=== PATIENT | female | born 1960 | race Caucasian/White ===

== ENCOUNTER 2024-01-21 21:44 | Inpatient (IN) | payer OTHER ==
[2024-01-21] MEDS: SODIUM CHLORIDE 0.9% 1,000 ML IV ONE (21:58)
[2024-01-21] MEDS: SODIUM CHLORIDE 0.9% 1,000 ML IV STA (21:59)
[2024-01-21] MEDS: LORazepam 2 MG/ML INJ IV STA (22:01)
[2024-01-21] MEDS: ADENOSINE 3 MG/ML 2 ML VIAL IVP STA ×2 (22:04→22:11)
[2024-01-21 22:10] LABS: Basophils % (A) 0 %; Eosinophils # (A) 0.1 k/uL (0-0.7); Eosinophils % (A) 1 %; HCT 38.3 % (34.0-46.0); HGB 12.8 gm/dL (11.4-16.0); Lymphocytes # (A) 2.2 k/uL (1.0-4.8); Lymphocytes % (A) 24 %; MCH 30.2 pg (25.0-35.0); MCHC 33.5 g/dL (31.0-37.0); MCV 90.2 fL (80.0-100.0); Mean Platelet Volume 7.2; Monocytes # (A) 0.3 k/uL (0-1.0); Monocytes % (A) 3 %; Neutrophils # (A) 6.6 k/uL (1.3-7.7); Neutrophils % (A) 71 %; Platelet Count 272 k/uL (150-450); RBC 4.25 m/uL (3.80-5.40); RDW 12.2 % (11.5-15.5); WBC 9.4 k/uL (3.8-10.6)
[2024-01-21 22:18] LABS: Partial Thromboplastin Time 22.9 sec (22.0-30.0); Prothrombin Time 10.6 sec (10.0-12.5)
[2024-01-21] MEDS: PROPOFOL 10 MG/ML 20 ML VIAL IV ONE (22:20)
[2024-01-21 22:26] LABS: ALT 16 U/L (4-34); African American GFR (CKD) 71 (>60 ml/min/1.73 sqM); Albumin 3.9 g/dL (3.5-5.0); Anion Gap 7 mmol/L; Blood Urea Nitrogen 16 mg/dL (7-17); Calcium 8.6 mg/dL (8.4-10.2); Carbon Dioxide 22 mmol/L (22-30); Chloride 109 mmol/L (98-107); Glucose 134 mg/dL (74-99); Non-African American GFR(CKD) 61 (>60 ml/min/1.73 sqM); Sodium 138 mmol/L (137-145); Total Bilirubin 0.7 mg/dL (0.2-1.3); Total Protein 6.6 g/dL (6.3-8.2)
[2024-01-21 22:29] LABS: AST 30 U/L (14-36); Alkaline Phosphatase 48 U/L (38-126); Magnesium 1.8 mg/dL (1.6-2.3)
[2024-01-21 22:35] LABS: NT-Pro-B-Type Natriuretic Pept 204 pg/mL
--- NOTE | 2024-01-21 23:09 | ED ---
Chest Pain HPI - General Chief Complaint: Chest Pain Stated Complaint: HIGH HEART RATE Time Seen by Provider: 01/21/24 21:46 Source: EMS Mode of arrival: EMS Limitations: no limitations - History of Present Illness Initial Comments: Patient is a 63-year-old woman who presents to have evaluation because she is not feeling well. Patient states that she had been using a push mower to mow her lawn. After that she states she just was not feeling well. She was a little short of breath, she was a little weak. She states she may have been a little sweaty. She denied chest pain. She called family members who prompted her to go to the hospital. MD Complaint: other Onset/Timin -: hour(s) Onset: other Pain Radiation: none Severity scale (1-10): 0 Consistency: constant Improves With: nothing Worsens With: nothing Anginal Symptoms: nausea Treatments Prior to Arrival: none - Related Data Home Medications Medication Instructions Recorded Confirmed Multivitamin/Iron/Folic Acid 1 tab PO DAILY 01/22/24 01/22/24 [Centrum Women Tablet] [place]-3/Dha/Epa/Fish Oil [Fish Oil 1 cap PO DAILY 01/22/24 01/22/24 1,000 mg Softgel] Vitamin B Complex 1 cap PO DAILY 01/22/24 01/22/24 Previous Rx's Medication Instructions Recorded Metoprolol Succinate (ER) [Toprol 25 mg PO DAILY #30 tab 01/22/24 Xl] Allergies Allergy/AdvReac Type Severity Reaction Status Date / Time No Known Allergies Allergy Verified 01/22/24 11:34 Review of Systems ROS Statement: Those systems with pertinent positive or pertinent negative responses have been documented in the HPI. ROS Other: All systems not noted in ROS Statement are negative. Constitutional: Reports: weakness. Denies: fever, chills Eyes: Denies: vision change Respiratory: Reports: dyspnea. Denies: cough, wheezes, stridor Cardiovascular: Reports: palpitations. Denies: chest pain, orthopnea, edema, syncope Gastrointestinal: Reports: nausea. Denies: abdominal pain, vomiting, diarrhea Genitourinary: Denies: dysuria, hematuria Musculoskeletal: Denies: back pain Skin: Denies: rash Neurological: Denies: headache, weakness, numbness EKG Findings - EKG Results: EKG: interpreted by ERMD, normal axis EKG shows: tachycardia (There is a wide-complex tachycardia in the 170s that appears to be SVT with bundle branch conduction. Possibility of ventricular tachycardia is considered) - Blocks, [place], Hypertrophy, ST Abn: AV and intraventricular conduction: left bundle branch block (fixed/intermittent, complete/incomplete) Repolarization changes or abnormalities: ST suggestive of injury General Exam General appearance: alert, in no apparent distress Head exam: Present: atraumatic, normocephalic Eye exam: Present: normal appearance. Absent: scleral icterus, conjunctival injection ENT exam: Present: mucous membranes dry Neck exam: Present: normal inspection Respiratory exam: Present: normal lung sounds bilaterally. Absent: respiratory distress, wheezes, rales, rhonchi, stridor, accessory muscle use Cardiovascular Exam: Present: regular rate, normal rhythm, normal heart sounds. Absent: systolic murmur, diastolic murmur, rubs, gallop GI/Abdominal exam: Present: soft. Absent: distended, tenderness, guarding, rebound, rigid, mass Extremities exam: Present: normal inspection Back exam: Present: normal inspection. Absent: CVA tenderness (R), CVA tenderness (L) Neurological exam: Present: alert Skin exam: Present: warm, dry, intact, mottled. Absent: rash Course Vital Signs 01/21/24 01/21/24 01/21/24 21:46 21:55 21:56 Temperature 98.2 F Pulse Rate 179 H 181 H Pulse Rate [ 181 H Right Supine Radial] Respiratory 18 18 Rate Blood Pressure 106/78 99/74 O2 Sat by Pulse 100 100 Oximetry 01/22/24 01/22/24 00:01 01:31 Temperature Pulse Rate 56 L 57 L Pulse Rate [ Right Supine Radial] Respiratory 16 18 Rate Blood Pressure 102/65 98/63 O2 Sat by Pulse 100 97 Oximetry Procedures - Procedural Sedation *Risks,benefits, and alternative therapies discussed?: Yes *Patient indicates understanding of risk/benefit discussion?: Yes *Indications: other (Wide-complex tachycardia with hypotension) *Previous Adverse Reaction to Anesthesia/Sedation?: No * Testing Complete?: No Reason Test Not Complete:: Emergent Situation *ASA Class: I *Mallampati Airway Score: 1 Complications: none Patient Tolerated Procedure: well, no complications Chest [facility] Patient is a 63-year-old woman presenting with complaint of not feeling well after mowing grass with a push mower. EMS did find wide-complex tachycardia that they suspected was SVT and they did give 2 doses of adenosine. They reported that after the 12 mg dose the patient did briefly go into sinus rhythm but reverted back to the tachycardia in the 170s. The patient had chest x-ray that I interpreted as negative for acute infiltrate, pneumothorax. There is pulmonary vascular congestion The patient was brought directly to the resuscitation room where she is seen and evaluated, had second IV started labs drawn, x-ray and EKG. Given that the patient did have response wants to adenosine and that she does have stable blood pressure adenosine was attempted twice without any result. Following this patient was pale and diaphoretic and blood pressure had decreased to the 70s over 40s. I did discuss synchronized cardioversion with the patient who did give verbal consent after risks, benefits, indications discussed. The patient was given propofol for sedation and then synchronized DC cardioversion was performed once with 100 J which resulted in patient converting to sinus rhythm. Was pt. sent in by a medical professional or institution (, PA, FORMING MACHINE OPERATOR, urgent care, hospital, or [facility]...) When possible be specific @ -[No] Did you speak to anyone other than the patient for history (EMS, parent, family, police, friend...)? What history was obtained from this source @ -[No] Did you review nursing and triage notes (agree or disagree)? Why? @ -[I reviewed and agree with nursing and triage notes] Were old charts reviewed (outside hosp., previous admission, EMS record, old EKG, old radiological studies, urgent care reports/EKG's, [facility] records)? Report findings @ -[No old charts were reviewed] Differential Diagnosis (chest pain, altered mental status, abdominal pain women, abdominal pain men, vaginal bleeding, weakness, fever, dyspnea, syncope, headache, dizziness, GI bleed, back pain, seizure, CVA, palpatations, mental health, musculoskeletal)? @ -Differential Palpitations Ventricular arrhythmias, atrial arrhythmias, myocardial infarction, anemia, thy rotoxicosis, electrolyte imbalance, hypokalemia, pulmonary embolism, pulmonary disease, drugs, alcohol, anxiety, stress.... This is not meant to be an all-inclusive list. EKG interpreted by me (3pts min.). @ -[I interpreted as above] X-rays interpreted by me (1pt min.). @ -[I interpreted as above CT interpreted by me (1pt min.). @ -[None done] U/S interpreted by me (1pt. min.). @ -[None done] What testing was considered but not performed or refused? (CT, X-rays, U/S, labs)? Why? @ -[None] What meds were considered but not given or refused? Why? @ -[None] Did you discuss the management of the patient with other professionals (professionals i.e. , PA, FORMING MACHINE OPERATOR, lab, RT, psych nurse, older adult social work specialist, principal technical architect, teacher, security officers and guards, case preparer and liner)? Give summary @ -Case discussed with the admitting physician and treatment recommendations incorporated Was smoking cessation discussed for >3mins.? @ -[No] Was critical care preformed (if so, how long)? @ -[Yes, 35 minutes Were there social determinants of health that impacted care today? How? (Homelessness, low income, unemployed, alcoholism, drug addiction, transportation, low edu. Level, literacy, decrease access to med. care, alf, rehab)? @ -[No] Was there de-escalation of care discussed even if they declined (Discuss DNR or withdrawal of care, Hospice)? DNR status @ -[No] What co-morbidities impacted this encounter? (DM, HTN, Smoking, COPD, CAD, Cancer, CVA, ARF, Chemo, Hep., AIDS, mental health diagnosis, sleep apnea, morbid obesity)? @ -[None] Was patient admitted / discharged? Hospital course, mention meds given and route, prescriptions, significant lab abnormalities, going to OR and other pertinent info. @ -[See the course above. Patient is admitted to have further evaluation as well as cardiology consultation and to continue cardiac monitoring. Undiagnosed new problem with uncertain prognosis? @ -[No] Drug Therapy requiring intensive monitoring for toxicity (Heparin, Nitro, Insulin, Cardizem)? @ -[No] Were any procedures done? @ -[Yes, synchronized cardioversion with procedural sedation Diagnosis/symptom? @ -[Acute heart arrhythmia Wide-complex tachycardia Hypotension Acute, or Chronic, or Acute on Chronic? @ -Acute Uncomplicated (without systemic symptoms) or Complicated (systemic symptoms)? @ -[Complicated by hypotension Side effects of treatment? @ -[No] Exacerbation, Progression, or Severe Exacerbation? @ -[No] Poses a threat to life or bodily function? How? (Chest pain, [place], [place], pneumonia, PE, COPD, DKA, ARF, appy, cholecystitis, CVA, Diverticulitis, Homicidal, Suicidal, threat to staff... and all critical care pts) @ -[Yes the patient had arrhythmia with hypotension and there is risk of associated Disposition Clinical Impression: Wide-complex tachycardia Disposition: ADMITTED IP TO THIS HOSP Condition: Stable Is patient prescribed a controlled substance at d/c from ED?: No
[2024-01-21] MEDS ORDERED: NITROGLYCERIN SL TABS 0.4 MG TAB SUBLINGUAL PRN (23:56)
--- NOTE | 2024-01-22 01:48 | XR ---
EXAM: XR Chest, 1 View CLINICAL HISTORY: ITS.REASON XR Reason: chest pain TECHNIQUE: Frontal view of the chest. COMPARISON: No relevant prior studies available. FINDINGS: Heart is top normal size. Mild pulmonary vascular congestion. No definite focal pneumonia. No pleural effusion or pneumothorax. Bones are unremarkable. IMPRESSION: Mild pulmonary vascular congestion.
[2024-01-22 03:25] VITALS: RESP 16
[2024-01-22] MEDS ORDERED: ONDANSETRON 4 MG/2 ML VIAL IVP PRN (08:26)
[2024-01-22] MEDS ORDERED: ACETAMINOPHEN TAB 325 MG TAB PO PRN (08:26)
[2024-01-22] MEDS: ASPIRIN 325 MG TAB PO SCH (08:27)
--- NOTE | 2024-01-22 11:42 | P.HPIM ---
History of Present Illness H&P Date: 01/22/24 This is a pleasant 63-year-old female with no significant medical history. Patient comes to the hospital with complaints of overall not feeling well with weakness and has been a little sweaty. Patient had been running around doing errands during the day, upon returning home symptoms started mostly described as feeling funny. Denied any shortness of breath. Did feel palpitations while laying down. No chest pain noted. No dizziness or light headedness. Decided to come to the ER for evaluation. Patient comes in with a heart rate of 180s to 200s appears to be a sustained V. tach. Patient was given to the scene and received sedation was cardioverted at 10:50 PM. Patient is now in normal sinus rhythm. Patient did have troponin elevation of 0.024, 0.447 and 0.692. Chest x-ray shows mild pulmonary vascular congestion however a proBNP is within normal limits for age in the 200s. Patient was admitted to the hospital with a cardiology consultation. Patient does port that a few weeks had similar symptoms of palpitations after working out which resolved spontaneously. Recently had a physical at her PCP office, 1 month ago and states her thyroid was check and was normal. REVIEW OF SYSTEMS: CONSTITUTIONAL: No fever, no malaise, no fatigue. HEENT: No recent visual problems or hearing problems. Denied any sore throat. CARDIOVASCULAR: No chest pain, orthopnea, PND, no palpitations, no syncope. PULMONARY: No shortness of breath, no cough, no hemoptysis. GASTROINTESTINAL: No diarrhea, no nausea, no vomiting, no abdominal pain. NEUROLOGICAL: No headaches, no weakness, no numbness. HEMATOLOGICAL: Denies any bleeding or petechiae. GENITOURINARY: Denies any burning micturition, frequency, or urgency. MUSCULOSKELETAL/RHEUMATOLOGICAL: Denies any joint pain, swelling, or any muscle pain. ENDOCRINE: Denies any polyuria or polydipsia. The rest of the 14-point review of systems is negative. PHYSICAL EXAMINATION: GENERAL: The patient is alert and oriented x3, not in any acute distress. Well developed, well nourished. HEENT: Pupils are round and equally reacting to light. EOMI. No scleral icterus. No conjunctival pallor. Normocephalic, atraumatic. No pharyngeal erythema. No thyromegaly. CARDIOVASCULAR: S1 and S2 present. No murmurs, rubs, or gallops. PULMONARY: Chest is clear to auscultation, no wheezing or crackles. ABDOMEN: Soft, nontender, nondistended, normoactive bowel sounds. No palpable organomegaly. MUSCULOSKELETAL: No joint swelling or deformity. EXTREMITIES: No cyanosis, clubbing, or pedal edema. NEUROLOGICAL: Gross neurological examination did not reveal any focal deficits. SKIN: No rashes. Assessment and plan Troponin elevation likely from the cardioversion Tachyarrhythmia/ SVT requiring adenosine and cardioversion now in normal sinus rhythm Palpitations requiring follow up with cardiology outpatient GI Prophylaxis DVT prophylaxis Patient can be discharged home will follow up with Dr Hair in the office. The impression and plan of care has been dictated by Jennifer Cordova Nurse Practitioner as directed. Dr. Fabian MD I have performed a history and physical examination and medical decision making of this patient, discussed the same with the dictator, and agree with the dictators assessment and plan as written, documented as a scribe. Based on total visit time, I have performed more than 50% of this visit. Past Medical History History of Any Multi-Drug Resistant Organisms: None Reported Smoking Status: Never smoker Past Drug Use History: None Reported Medications and Allergies Home Medications Medication Instructions Recorded Confirmed Type Multivitamin/Iron/Folic Acid 1 tab PO DAILY 01/22/24 01/22/24 History [Centrum Women Tablet] [place]-3/Dha/Epa/Fish Oil [Fish Oil 1 cap PO DAILY 01/22/24 01/22/24 History 1,000 mg Softgel] Vitamin B Complex 1 cap PO DAILY 01/22/24 01/22/24 History Allergies Allergy/AdvReac Type Severity Reaction Status Date / Time No Known Allergies Allergy Verified 01/22/24 11:34 Physical Exam Vitals: Vital Signs Temp Pulse Pulse Resp BP BP Pulse Ox 01/22/24 02:00 98.1 F 57 L 16 107/69 97 01/22/24 01:31 57 L 18 98/63 97 01/22/24 00:01 56 L 16 102/65 100 01/21/24 21:56 181 H 01/21/24 21:55 181 H 18 99/74 100 01/21/24 21:46 98.2 F 179 H 18 106/78 100 Intake and Output 01/21/24 01/22/24 01/22/24 22:59 06:59 14:59 Intake Total 540 Balance 540 Intake: Oral 540 Other: # Voids 1 Weight 69.4 kg 75 kg Results CBC & Chem 7: 01/21/24 21:55 01/21/24 21:55 Labs: Abnormal Lab Results - Last 24 Hours (Table) 01/21/24 01/22/24 01/22/24 Range/Units 21:55 01:32 04:50 Chloride 109 H (98-107) mmol/L Glucose 134 H (74-99) mg/dL Troponin I 0.447 H* 0.692 H* (0.000-0.034) ng/mL Assessment and Plan Time with Patient: Greater than 30
[2024-01-22 12:14] VITALS: BP 107/63; PULSE 70; TEMP 98.4
--- NOTE | 2024-01-22 12:37 | CA ---
Transthoracic Echo Report Name: Pratik Moon Age: 63 Gender: F : 1960 Exam Date: 01/22/2024 11:11 Exam Location: [place] [facility] Ht (in): 68 Wt (lb): 153 Ordering Physician: Freddy Adams MD Attending/Referring Phys: Pressed Or Blown Glass Worker Nirali Lua RDCS Procedure CPT: Indications: tachyarrhythmia Cardiac Hx: Technical Quality: Fair Contrast 1: Definity Total Dose (mL): 2 Contrast 2: Total Dose (mL): MEASUREMENTS (Male / Female) Normal Values 2D ECHO LV Diastolic Diameter PLAX 3.9 cm 4.2 - 5.9 / 3.9 - 5.3 cm LV Systolic Diameter PLAX 2.5 cm IVS Diastolic Thickness 1.4 cm 0.6 - 1.0 / 0.6 - 0.9 cm LVPW Diastolic Thickness 1.1 cm 0.6 - 1.0 / 0.6 - 0.9 cm LV Relative Wall Thickness 0.7 RV Internal Dim ED PLAX 3.6 cm LV Diastolic Volume MOD BP 90.3 cm??? 67 - 155 / 56 - 104 cm??? LV Systolic Volume MOD BP 25.3 cm??? 22 - 58 / 19 - 49 cm??? LV Ejection Fraction MOD BP 72.0 % >= 55 % LV Cardiac Index MOD BP 2632.7 cm???/min???m??? LV Diastolic Volume MOD 4C 71.4 cm??? LV Systolic Volume MOD 4C 18.4 cm??? LV Ejection Fraction MOD 4C 74.3 % LV Cardiac Index MOD 4C 2146.8 cm???/min???m??? LV Diastolic Length 4C 7.0 cm LV Systolic Length 4C 4.6 cm LV Diastolic Volume MOD 2C 110.1 cm??? LV Systolic Volume MOD 2C 28.2 cm??? LV Ejection Fraction MOD 2C 74.4 % LV Cardiac Index MOD 2C 3316.3 cm???/min???m??? LV Diastolic Length 2C 7.3 cm LV Systolic Length 2C 5.8 cm LA Volume 61.8 cm??? 18 - 58 / 22 - 52 cm??? LA Volume Index 33.8 cm???/m??? 16 - 28 cm???/m??? M-MODE Aortic Root Diameter MM 2.4 cm LA Systolic Diameter MM 3.4 cm LA Ao Ratio MM 1.4 AV Cusp Separation MM 1.3 cm DOPPLER AV Peak Velocity 132.3 cm/s AV Peak Gradient 7.0 mmHg AV Mean Velocity 95.1 cm/s AV Mean Gradient 3.9 mmHg AV Velocity Time Integral 30.8 cm LVOT Peak Velocity 124.5 cm/s LVOT Peak Gradient 6.2 mmHg LVOT Velocity Time Integral 28.5 cm MV Area PHT 2.9 cm??? Mitral E Point Velocity 95.6 cm/s Mitral A Point Velocity 51.2 cm/s Mitral E to A Ratio 1.9 MV Deceleration Time 265.7 ms MV E' Velocity 10.7 cm/s Mitral E to MV E' Ratio 8.9 TR Peak Velocity 268.7 cm/s TR Peak Gradient 28.9 mmHg Right Ventricular Systolic Press 33.2 mmHg FINDINGS Left Ventricle Moderately increased left ventricular wall thickness. Left ventricular cavity size normal. Normal left ventricular systolic function with no obvious regional wall motion abnormalities. Left ventricular ejection fraction is estimated at 55-60 %. Grade 1 diastolic dysfunction. Right Ventricle Mild right ventricular dilatation. Right ventricular systolic pressure within normal limits. Hypokinetic right ventricular free wall. Right Atrium Right atrial dilatation. Left Atrium Mildly increased left atrial volume. Mitral Valve Structurally normal mitral valve. Mitral valve thickened. Mild mitral annular calcification. Mild mitral regurgitation. Aortic Valve Trileaflet aortic valve. No aortic valve stenosis or regurgitation. Tricuspid Valve Structurally normal tricuspid valve. Mild tricuspid regurgitation. Pulmonic Valve Structurally normal pulmonic valve. Trace pulmonic regurgitation. Pericardium No pericardial effusion. Aorta Normal size aortic root and proximal ascending aorta. CONCLUSIONS Normal LV size and function RV at the appointment is abnormal with questionable mild hypokinesis of the RV free wall Previewed by: Dr. Chris Hair MD (Electronically Signed) Final Date: 22 January 2024 12:36
--- NOTE | 2024-01-22 12:47 | P.CRDCN ---
History of Present Illness Consult date: 01/22/24 Reason for Consult (text): arrhythmia History of present illness: the patient is a 63-year-old female with no past medical history who called EMS after experiencing a syncopal episode. The patient had been mowing her mother's lawn with a push mower and had been feeling well throughout the day. She then developed acute onset of dizziness and awoke lying on the ground. EMS was notified and she was found to be in a wide complex tachycardia. She had received 2 doses of adenosine via EMS, with additional doses given in the emergency room. She was ultimately converted via cardioversion.The patient states she had one similar episode earlier this month while showering with spontaneous resolution of symptoms. DIAGNOSTICS: EKG shows ventricular tachycardia with left bundle branch block pattern EKG post cardioversion shows sinus rhythm echocardiogram shows preserved LV function without structural abnormalities. lab data: WBC 9.4, hemoglobin 12.8, hematocrit 38.3, platelet 272, sodium 138, potassium 4.0, BUN 16, creatinine 1.0, AST 30, ALT 16, troponins 0.02, 0.6, BNP 204 REVIEW OF SYSTEMS: No fever or chills. No cough or expectoration. No diaphoresis. Patient denies headache, dizziness, blurred vision, double vision. Patient denies any stomach discomfort. No nausea, vomiting. No hematochezia. No hematemesis. Denies any black stools or blood in his stools. Denies dysuria or hematuria. No muscle weakness or numbness. no chest pain or chest pressure. No difficulty breathing. PHYSICAL EXAMINATION: This is a 63-year-old female in no apparent distress at the time of my examination. HEENT: Head is atraumatic, normocephalic. There is no jugular venous distention. No carotid bruit is heard. CHEST EXAMINATION: Lungs are clear to auscultation. No chest wall tenderness is noted on palpation or with deep breathing. HEART EXAMINATION: Heart regular rate and rhythm. S1, S2 heard. No murmurs, gallops or rub. ABDOMEN: Soft, nontender. Bowel sounds are heard. No organomegaly noted. EXTREMITIES: 2+ peripheral pulses with no evidence of peripheral edema and no calf tenderness noted. NEUROLOGIC EXAMINATION: Patient is awake, alert and oriented x3. FINAL ASSESSMENT AND PLAN: Idiopathic ventricular tachycardia, from RVOT Structurally normal heart PLAN: Start Toprol 25 mg daily check TSH patient may be discharged Outpatient follow-up with Dr. Hair to discuss ablation I am dictating on behalf of Dr Chris Hair's history/physical and assessment/plan. Past Medical History History of Any Multi-Drug Resistant Organisms: None Reported Smoking Status: Never smoker Past Drug Use History: None Reported Medications and Allergies Home Medications Medication Instructions Recorded Confirmed Type RX: Multivitamin/Iron/Folic Acid 1 tab PO DAILY 01/22/24 01/22/24 History [Centrum Women Tablet] RX: [place]-3/Dha/Epa/Fish Oil [Fish 1 cap PO DAILY 01/22/24 01/22/24 History Oil 1,000 mg Softgel] RX: Vitamin B Complex 1 cap PO DAILY 01/22/24 01/22/24 History Allergies Allergy/AdvReac Type Severity Reaction Status Date / Time No Known Allergies Allergy Verified 01/22/24 11:34 Physical Exam Vitals: Vital Signs Temp Pulse Pulse Pulse Resp BP BP 01/22/24 08:39 01/22/24 08:25 97.7 F 72 16 92/49 01/22/24 02:00 98.1 F 57 L 16 107/69 01/22/24 01:31 57 L 18 98/63 01/22/24 00:01 56 L 16 102/65 01/21/24 21:56 181 H 01/21/24 21:55 181 H 18 99/74 01/21/24 21:46 98.2 F 179 H 18 106/78 Pulse Ox 01/22/24 08:39 97 01/22/24 08:25 99 01/22/24 02:00 97 01/22/24 01:31 97 01/22/24 00:01 100 01/21/24 21:56 01/21/24 21:55 100 01/21/24 21:46 100 Intake and Output 01/21/24 01/22/24 01/22/24 22:59 06:59 14:59 Intake Total 540 358 Balance 540 358 Intake: Oral 540 358 Other: # Voids 1 Weight 69.4 kg 75 kg Results 01/21/24 21:55 01/21/24 21:55 Cardiac Enzymes 01/21/24 01/21/24 01/22/24 Range/Units 21:55 21:55 01:32 AST 30 (14-36) U/L Troponin I 0.024 0.447 H* (0.000-0.034) ng/mL 01/22/24 Range/Units 04:50 AST (14-36) U/L Troponin I 0.692 H* (0.000-0.034) ng/mL Coagulation 01/21/24 Range/Units 21:55 PT 10.6 (10.0-12.5) sec APTT 22.9 (22.0-30.0) sec CBC 01/21/24 Range/Units 21:55 WBC 9.4 (3.8-10.6) k/uL RBC 4.25 (3.80-5.40) m/uL Hgb 12.8 (11.4-16.0) gm/dL Hct 38.3 (34.0-46.0) % Plt Count 272 (150-450) k/uL Comprehensive Metabolic Panel 01/21/24 Range/Units 21:55 Sodium 138 (137-145) mmol/L Potassium 4.0 (3.5-5.1) mmol/L Chloride 109 H (98-107) mmol/L Carbon Dioxide 22 (22-30) mmol/L BUN 16 (7-17) mg/dL Creatinine 1.00 (0.52-1.04) mg/dL Glucose 134 H (74-99) mg/dL Calcium 8.6 (8.4-10.2) mg/dL AST 30 (14-36) U/L ALT 16 (4-34) U/L Alkaline Phosphatase 48 (38-126) U/L Total Protein 6.6 (6.3-8.2) g/dL Albumin 3.9 (3.5-5.0) g/dL Current Medications Generic Name Dose Route Start Last Admin Trade Name Freq PRN Reason Stop Dose Admin Acetaminophen 650 mg 01/22/24 08:26 Acetaminophen Tab 325 Mg Tab PO Q6HR PRN Fever and/ or Pain Aspirin 325 mg 01/22/24 09:00 01/22/24 08:27 Aspirin 325 Mg Tab PO 325 mg DAILY RAFY Administration Heparin Sodium (Porcine) 5,000 unit 01/22/24 08:30 Heparin Sodium,Porcine 5,000 Unit/Ml 1 Ml Vial SQ Q8HR RAFY Sodium Chloride 1,000 mls @ 75 mls/hr 01/21/24 21:54 01/21/24 21:59 Saline 0.9% IV 01/22/24 11:13 75 mls/hr .[id number] STA Administration Nitroglycerin 0.4 mg 01/21/24 23:56 Nitroglycerin Sl Tabs 0.4 Mg Tab SUBLINGUAL Q5M PRN Chest Pain Ondansetron HCl 4 mg 01/22/24 08:26 Ondansetron 4 Mg/2 Ml Vial IVP Q6HR PRN Nausea And Vomiting Intake and Output 01/21/24 01/22/24 01/22/24 22:59 06:59 14:59 Intake Total 540 358 Balance 540 358 Intake: Oral 540 358 Other: # Voids 1 Weight 69.4 kg 75 kg 01/21/24 21:55 01/21/24 21:55
[2024-01-22 13:43] LABS: Chol/HDL Ratio 3.08 Ratio; LDL Cholesterol,Calculated 117.8 mg/dL (0.0-131.0); VLDL Calculation 7.94 mg/dL (5.00-40.00)
[2024-01-22] MEDS: METOPROLOL SUCCINATE (ER) 25 MG TAB.ER.24H PO SCH (13:52)
[2024-01-22] MEDS: HEPARIN SODIUM,PORCINE 5,000 UNIT/ML 1 ML VIAL SQ SCH (13:53)
--- NOTE | 2024-01-25 14:56 | P.DS ---
Providers Date of admission: 01/22/24 00:01 Attending physician: Nicol Grewal MD Consults: 01/21/24 23:56 Consult Physician Urgent Consulting Provider: Chris Hair Consult Reason/Comments: Tachyarrhythmia. Do you want consulting provider notified?: Yes Primary care physician: Amada Enciso Hospital Course: Final Diagnosis Troponin elevation likely from the cardioversion Tachyarrhythmia/ SVT requiring adenosine and cardioversion now in normal sinus rhythm Palpitations requiring follow up with cardiology outpatient Discharge Disposition Stable for discharge home. Patient will follow-up with Dr. Sharpe in 1 week on discharge. Patient has been started on Toprol XL 25 mg daily for the palpitations. Patient to see her PCP Dr. Enciso in 1 to 2 days. Hospital Course This is a pleasant 63-year-old female with no significant medical history. Patient comes to the hospital with complaints of overall not feeling well with weakness and has been a little sweaty. Patient had been running around doing errands during the day, upon returning home symptoms started mostly described as feeling funny. Denied any shortness of breath. Did feel palpitations while laying down. No chest pain noted. No dizziness or light headedness. Decided to come to the ER for evaluation. Patient comes in with a heart rate of 180s to 200s appears to be a sustained V. tach. Patient was given to the scene and re ceived sedation was cardioverted at 10:50 PM. Patient is now in normal sinus rhythm. Patient did have troponin elevation of 0.024, 0.447 and 0.692. Chest x-ray shows mild pulmonary vascular congestion however a proBNP is within normal limits for age in the 200s. Patient was admitted to the hospital with a cardiology consultation. Patient does report that a few weeks had similar symptoms of palpitations after working out which resolved spontaneously. Recently had a physical at her PCP office, 1 month ago and states her thyroid was check and was normal. Cardiogram reveals an ejection fraction of 55 to 60% with grade 1 diastolic dysfunction. There is questionable mild hypokinesis of the RV free wall. Patient has been cleared by cardiology no longer having any chest discomfort or palpitations. Patient has been up ambulating alert oriented x 3 no focal neurological deficits. No evidence of any atrial fibrillation or arrhythmia on cardiac telemetry monitoring overnight. Patient will be discharged home. Please see medication reconciliation for a list of current medications. Thank you for allowing us to participate in the care of this patient. The impression and plan of care has been dictated by Jennifer Cordova, Nurse Practitioner as directed. Dr. Fabian MD I have performed a history and physical examination and medical decision making of this patient, discussed the same with the dictator, and agree with the dictators assessment and plan as written, documented as a scribe. Based on total visit time, I have performed more than 50% of this visit. Patient Condition at Discharge: Stable Plan - Discharge Summary Discharge Rx Participant: Yes New Discharge Prescriptions: New Metoprolol Succinate (ER) [Toprol Xl] 25 mg PO DAILY #30 tab Continue Vitamin B Complex 1 cap PO DAILY Multivitamin/Iron/Folic Acid [Centrum Women Tablet] 1 tab PO DAILY Rockfall-3/Dha/Epa/Fish Oil [Fish Oil 1,000 mg Softgel] 1 cap PO DAILY Discharge Medication List Metoprolol Succinate (ER) [Toprol Xl] 25 mg PO DAILY #30 tab 01/22/24 [Rx] Multivitamin/Iron/Folic Acid [Centrum Women Tablet] 1 tab PO DAILY 01/22/24 [History] Rockfall-3/Dha/Epa/Fish Oil [Fish Oil 1,000 mg Softgel] 1 cap PO DAILY 01/22/24 [History] Vitamin B Complex 1 cap PO DAILY 01/22/24 [History] Follow up Appointment(s)/Referral(s): Chris Hair MD [STAFF PHYSICIAN] - 1 Week (Patient to schedule appointment, as office is closed at time of discharge.) Amada Enciso DO [Primary Care Provider] - 1-2 days (Patient to schedule appointment, as office is closed at time of discharge.) Patient Instructions/Handouts: Supraventricular Tachycardia (DC) Discharge Disposition: HOME WITH HOME HEALTH SERVICES
--- NOTE | 2024-01-25 16:00 | CDI ---
Documentation Clarification Form Date: 01/25/2024 03:54:23 PM From: Elida Barrett RN, CCDS Phone: [phone] Admit Date: 01/22/2024 12:01:00 AM Patient Name: Pratik Moon Visit Number: [id number] Discharge Date: 01/22/2024 02:02:00 PM ATTENTION: The Clinical Documentation Specialists (CDI) and [facility] Coding Staff appreciate your assistance in clarifying documentation. Please respond to the clarification below the line at the bottom and electronically sign. The CDI & [facility] Coding staff will review the response and follow-up if needed. Please note: Queries are made part of the Legal Health Record. If you have any questions, please contact the author of this message via ITS. Jennifer Cordova The patient had elevated troponin levels. Please clarify if there is an additional diagnosis and/or clinical significance related to this value. Patient history/risk factors: No significant past medical history. Presented with weakness and not feeling well after mowing the lawn. Found to be in SVT, s/p cardioversion. Clinical indicators: ED: EKG shows: tachycardia (There is a wide-complex tachycardia in the 170s that appears to be SVT with bundle branch conduction. 01/20-01/21 Troponins: 0.024-0.447-0.692 H&P and discharge summary: "Troponin elevation likely from the cardioversion. Tachyarrhythmia/ SVT requiring Adenosine and cardioversion now in normal sinus rhythm." Treatment: F/U with Cardiology after discharge; Toprol XL 25mg daily for palpitations Is there an additional diagnosis and/or clinical significance related to the above lab result/information: [ ] Non-ischemic acute myocardial injury [ x ] No additional diagnosis/Not clinically significant [ ] Other, please specify [ ] Unable to determine MTDD
== END 2024-01-22 14:02 | disposition home health service (06) | DRG 310 ==
LOC: EC 21:44 → 3SCARD 01-22 00:01
PROVIDERS: ADMIT Internal Medicine; ATTEND Internal Medicine
PROC: 5A2204Z Restoration of Cardiac Rhythm, Single (ICD-10-PCS; principal; 2024-01-21)
DX: I47.10 Supraventricular tachycardia, unspecified (principal); I44.7 Left bundle-branch block, unspecified; I47.20 Ventricular tachycardia, unspecified; R79.89 Other specified abnormal findings of blood chemistry; Z28.310 Unvaccinated for COVID-19; Z28.21 Immunization not carried out because of patient refusal
CPT/HCPCS: 36415; 71045; 80053; 80061; 83735; 83880; 84443; 84484; 85025; 85610; 85730; 93005; 93306; 94760; 96374; 96375; 99152; 99291

== ENCOUNTER 2024-02-10 19:09 | Inpatient (IN) | payer OTHER ==
[2024-02-10] MEDS ORDERED: AMIODARONE 50 MG/ML 3 ML VIAL IV ONE (19:15)
[2024-02-10] MEDS ORDERED: MAGNESIUM SULFATE-D5W PMX 200 ML IVPB ONE (19:15)
[2024-02-10] MEDS ORDERED: SODIUM CHLORIDE 0.9% 1,000 ML BAG ONE (19:23)
[2024-02-10] MEDS ORDERED: SODIUM CHLORIDE 0.9% 100 ML BAG IV ONE (19:38)
[2024-02-10] MEDS ORDERED: DILTIAZEM 5 MG/ML 5 ML VIAL ONE (19:38)
[2024-02-10] MEDS ORDERED: METOPROLOL TARTRATE 5 MG/5 ML VIAL IVP ONE ×4 (19:47→20:30)
[2024-02-10] MEDS ORDERED: METOPROLOL TARTRATE 50 MG TAB ONE (20:35)
[2024-02-10] MEDS ORDERED: ACETAMINOPHEN TAB 500 MG TAB ONE (22:03)
[2024-02-11] MEDS ORDERED: ACETAMINOPHEN TAB 325 MG TAB ONE (08:18)
[2024-02-11] MEDS ORDERED: METOPROLOL SUCCINATE (ER) 25 MG TAB.ER.24H PO ONE (09:08)
--- NOTE | 2024-03-15 14:15 | XR ---
EXAMINATION TYPE: XR chest 1V portable DATE OF EXAM: 03/09/2024 11:59 AM COMPARISON: 02/10/2024 TECHNIQUE: XR chest 1V portable Portable AP radiograph of the chest. CLINICAL INDICATION:Female, 63 years old with history of HEART PALPITATIONS; FINDINGS: Lungs/Pleura: There is no evidence of pleural effusion, focal consolidation, or pneumothorax. Pulmonary vascularity: Unremarkable. Heart/mediastinum: Cardiomediastinal silhouette is unremarkable. Musculoskeletal: No acute osseous pathology. IMPRESSION: No acute cardiopulmonary disease/process.
== END 2024-02-11 12:34 | disposition short-term general hospital (02) | DRG 310 ==
LOC: EC 19:09 → 3SCARD 22:00 → EC 02-11 19:07
PROVIDERS: ADMIT Hospitalist; ATTEND Hospitalist
PROC: 3E033RZ Introduction of Antiarrhythmic into Peripheral Vein, Percutaneous Approach (ICD-10-PCS; principal; 2024-02-10)
DX: I47.20 Ventricular tachycardia, unspecified (principal); I95.9 Hypotension, unspecified; I48.91 Unspecified atrial fibrillation; R00.1 Bradycardia, unspecified
CPT/HCPCS: 71045; 93005; 96365; 96366; 96375; 99285